=== PATIENT | female | born 1930 | race Caucasian/White ===

== ENCOUNTER 2016-08-01 17:26 | Emergency (ER) | payer OTHER ==
[~2016-08-01 17:26] MED LIST: AMLODIPINE BESYL5 MG PO; ATENOLOL50 MG PO; ATORVASTATIN CA40 MG PO; SYNTHROID75 MCG PO
--- NOTE | 2016-08-01 18:27 | ED CLINICAL REPORT ---
Clinical Report - Physicians/Mid Levels [facility] [address] [place] [address] 08/01/2016 17:28 Patient: OPAL LAI Time Seen: 17:55. Arrived- By private vehicle. Historian- patient. History limited by vague historian. Physical Exam limited by poor cooperation. HISTORY OF PRESENT ILLNESS Chief Complaint: ABNORMAL LAB. This started today and is still present. (the patient apparently went to her primary care physician's office today. She was seen there for routine physical and apparently lab work was obtained. She and her were contacted by the office and instructed present to the emergency room because apparently her potassium is high and apparently she is anemic. She is also reportedly "dehydrated."). REVIEW OF SYSTEMS No chills, fever, sweats, calf pain or chest pain. No cough, difficulty breathing, pedal edema, palpitations or abdominal pain. No diarrhea, nausea, vomiting or urinary problems. All systems otherwise negative, except as recorded above. PAST HISTORY Problems: Bowel Obstruction. Pneumonia. Hyperlipidemia. Abdominal Pain. Hypertension. Additional Surgeries: Appendectomy. Hysterectomy. Ruptured bowel. Tonsillectomy & Adenoidectomy. Medications: AmLODIPine Besylate Oral (Tablet 5 mg) 1 tablet, daily. Levothyroxine Sodium Oral (Tablet 75 mcg) 1 tablet, daily. Atorvastatin Calcium Oral (Tablet 40 mg) 1 tablet, daily. Allergies: No Known Drug Allergy. SOCIAL HISTORY Never smoker. Occasional alcohol use. No drug use. She lives with spouse. FAMILY HISTORY Denies family medical history. ADDITIONAL NOTES The nursing notes have been reviewed. PHYSICAL EXAM Vital Signs: 08/01/2016 17:35 BP: 133/58. HR: 71. RR: 20. O2 saturation: 100%. Temp: 96.3 F. Pain level now: 0/10. Appearance: Alert. Eyes: Pupils equal, round and reactive to light. ENT: Dry mucous membranes present. No pharyngeal erythema. Neck: Normal inspection. Neck supple. No JVD. CVS: Normal heart rate and rhythm. Heart sounds normal. Respiratory: No respiratory distress. Decreased air movement. Abdomen: No visible injury. Soft and nontender. Bowel sounds normal. No organomegaly. No mass. Back: Normal inspection. No CVA tenderness. Rectal: Strongly heme-positive stool. (POC test reference range: negative). Skin: Skin warm and dry. Pallor. Extremities: No calf tenderness. No lower extremity edema. LABS, X-RAYS, AND EKG EKG: Rate: 68. Decreased QRS voltage. Prior EKG unavailable. Chest X-ray: (IMPRESSION: 1. Negative chest.). The X-rays were interpreted by the radiologist and contemporaneously by me. Abdominal CT: IMPRESSION: 1. Hysterectomy and partial sigmoidectomy 2. Rizvi catheter in place 3. L2 lytic lesion suggestive of metastasis. The study was interpreted by the radiologist and contemporaneously by me. Laboratory Tests: CBC w Diff: (VITOR: 08/01/2016 17:38) ( MsgRcvd 08/01/2016 19:19) Final results Test Result Flag Units (Reference) WHITE BLOOD COUNT 14.7 H K/uL (4.5-11.5) RED BLOOD COUNT 2.02 L M/uL (4.00-5.20) HEMOGLOBIN 6.9 L gm/dL (12.0-16.0) CRITICAL RESULTS CALLEDCalled to [place] 08/01/16 1800Were 2 patient identifiers used? YWas the result read back? Y HEMATOCRIT 20.4 *L % (36.0-46.0) CRITICAL RESULTS CALLEDCalled to [place] K[place] 08/01/16 1800Were 2 patient identifiers used? YWas the result read back? Y MEAN CELL VOLUME 102 H fL (80-100) MEAN CORPUSCULAR HGB 34 pg (26-34) MEAN CORPUSCULAR HGB CONC 34 g/dL (31-37) RED CELL DISTRIBUTION WIDTH 18.4 H % (11.6-14.8) PLATELET COUNT 51 L K/uL (150-400) NEUTROPHIL % 27.5 L % (50-75) LYMPH % 23.6 L % (25-40) MONO % 8.7 % (3-14) EOSINOPHIL % 0.3 % (0-4) BASOPHIL % 39.9 H % (0-2) POLY % 40 L % (50-75) BAND % 1 % (0-8) LYMPH 44 H % (25-40) MONO 13 % (3-14) EOSINOPHIL % 1 % (0-4) BASOPHIL % 1 % (0-2) METAMYELOCYTE % 0 % (0-1) MYELOCYTE 0 % (0-1) OTHER CELL TYPE 0 HYPOCHROMIA 2+ ANISOCYTOSIS 2+ OVALOCYTES 1+ PT with INR: (VITOR: 08/01/2016 17:38) ( [facility] 08/01/2016 18:02) Final results Test Result Flag Units (Reference) INR 1.2 (0.8-1.2) Low Intensity Therapy: INR 1.5-2.0 PT range 18.5-23.1Mod.Intensity Therapy: INR 2.0-3.0 PT range 23.1-31.5High Intensity Therapy: INR 2.5-3.5 PT range 27.4-35.5High Intensity Therapy 2: INR 3.0-4.0 PT range 31.5-39.3 APTT 30 SECONDS (24-34) Lactate, Serum: (VITOR: 08/01/2016 18:55) ( [facility] 08/01/2016 19:49) Final results Test Result Flag Units (Reference) LACTIC ACID 1.2 mmol/L (0.4-2.0) Lipase: (VITOR: 08/01/2016 18:00) ( [facility] 08/01/2016 18:18) Final results Test Result Flag Units (Reference) LIPASE 1241 H U/L (73-393) AMYLASE 96 U/L (25-115) CMP: (VITOR: 08/01/2016 17:38) ( [facility] 08/01/2016 18:19) Final results Test Result Flag Units (Reference) GLUCOSE 125 H mg/dL (70-110) BUN 191 *H mg/dL (7-18) CRITICAL RESULTS CALLEDCalled to Allyn NOEL 08/01/16 4210Were 2 patient identifiers used? Y'Was the result read back? Y CREATININE 19.7 *H mg/dL (0.6-1.3) CRITICAL RESULTS CALLEDCalled to Allyn NOEL 08/01/163Were 2 patient identifiers used? YWas the result read back? Y Estimated GFR 1.80 mL/min Estimated GFR- 2.18 mL/min Note: Persistent reduction over 3 months in eGFR<60 mL/min/1.73 m2 defines CKD. Patients with eGFR values>=60 mL/min/1.73 m2 may also have CKD if evidence ofpersistent proteinuria. Additional information may be foundat www.kidney.org. SODIUM 129 L mmol/L (136-145) POTASSIUM 5.6 H mmol/L (3.5-5.1) CHLORIDE 92 L mmol/L (98-107) CARBON DIOXIDE 9 *L mmol/L (21-32) CRITICAL RESULTS CALLEDCalled to Allyn NOEL 08/01/164Were 2 patient identifiers used? YWas the result read back? Y CALCIUM 8.7 mg/dL (8.5-10.1) TOTAL PROTEIN 9.0 H g/dL (6.4-8.2) ALBUMIN 2.9 L g/dL (3.3-5.0) BILIRUBIN, TOTAL 0.5 mg/dL (0.0-1.0) ALKALINE PHOSPHATASE 124 H U/L (46-116) AST (SGOT) 46 H U/L (15-37) ALT (SGPT) 50 U/L (12-78) Type & Screen: (VITOR: 08/01/2016 17:51) ( MsgRcvd 08/01/2016 19:10) Final results Test Result Flag Units (Reference) PATIENT BLOOD TYPE O Negative ANTIBODY SCREEN NEGATIVE . PROGRESS AND PROCEDURES Course of Care: Patient is stable. Consult obtained from internal medicine. Dr. Lind at [facility]. Case discussed. Phone consult only. Will see patient in the hospital. Patient/family counseled. Old medical records reviewed. Disposition: Transferred to [facility]. CLINICAL IMPRESSION GI bleed. Pancreatitis. Anemia. Leukocytosis. Anemia. Hyperkalemia. Hyponatremia. L 2 lytic lesion. (Electronically signed by Brock Gtz MD 08/04/2016 9:05)
--- NOTE | 2016-08-01 18:27 | ED NURSING NOTES ---
Clinical Report - Nurses [facility] [address] [place] [address] 08/01/2016 17:28 Patient: OPAL LAI TRIAGE Triage time 17:35 Aug 01 2016. Acuity: LEVEL 2. Chief Complaint: (weak and shaking, nosebleeds). 17:42 08/01/16. --17:42 Elaine Bella R.N. 17:35 08/01/16. BP: 133/58. HR: 71. RR: 20. O2 saturation: 100%. Temp: 96.3 F (temporal). Pain level now: 0/10. --17:42 Elaine Bella R.N. Weight: 64.3 kg measured. Height/Length: 64 inches Per Patient. BMI: 24.4. --17:35 Elaine Bella R.N. Medications Atorvastatin Calcium Oral (Tablet 40 mg) 1 tablet, daily. --17:39 Elaine Bella R.N. Levothyroxine Sodium Oral (Tablet 75 mcg) 1 tablet, daily. --17:39 Elaine Bella R.N. AmLODIPine Besylate Oral (Tablet 5 mg) 1 tablet, daily. --17:39 Elaine Bella R.N. Medication/allergy information source: the patient's spouse. --17:42 Elaine Bella R.N. Allergies No Known Drug Allergy. --17:39 Elaine Bella R.N. History Arrived by private vehicle. Historian: patient. Accompanied by family. ( sent by [facility], was at routine eval today and found to have Hgb 6.7, hct 19.6, creat 18, Co2 8). Onset. (1 weeks). She has had weakness and difficulty breathing. No fever, cough or skin rash. Denies muscle aches. Treatment CAFE WORKER: None. PAST MEDICAL HX: Immunizations: has received tetanus within 5 years; seasonal influenza. SOCIAL HX: Never smoker. Occasional alcohol use. No drug use. No infectious disease exposure. ABUSE ASSESSMENT: No report of abuse. SELF HARM ASSESSMENT: A self harm assessment was performed. The patient answered "no" to the question "Have you recently felt down, depressed, or hopeless?", "Have you noticed less interest or pleasure in doing things?", "Do you have thoughts of harming or killing yourself?", "Are you here because you tried to hurt yourself?", "Have you ever tried to hurt yourself before today?", "Have you recently had thoughts about harming or killing others?" and "Do you have any dangerous items in your possession?". LEARNING NEEDS ASSESSMENT: The learning needs assessment revealed no barriers. NUTRITIONAL RISK ASSESSMENT: Deficiencies were identified during the nutritional risk assessment. The patient has experienced recent unexpected weight loss- less than 10 pounds in 30 days. The patient has recently had a 75 percent decrease in intake and decreased appetite, loss of taste and anorexia. 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 SKIN INTEGRITY ASSESSMENT: Skin integrity risk assessment completed. No skin integrity risk identified. --17:42 Elaine Bella R.N. PROBLEMS: Bowel Obstruction. Hyperlipidemia. Hypertension. --17:40 Elaine Bella R.N. ADDITIONAL SURGERIES: Appendectomy. Hysterectomy. Ruptured bowel. Tonsillectomy & Adenoidectomy. --17:40 Elaine Bella R.N. Interventions ID band on patient. --17:42 Elaine Bella R.N. PHYSICAL ASSESSMENT 17:43 08/01/16. To room via wheelchair. GENERAL / NEURO / PSYCH: Alert. Oriented X 4. HEENT: Pupils equal, round and reactive to light. No facial asymmetry noted. Active nose bleed present (recent nose bleeds). No facial weakness. Runny nose. No sinus tenderness present. ( oral membranes dry). Mucous membranes are not pink. RESPIRATORY: Respirations not labored. No chest wall tenderness. Breath sounds within normal limits. No decreased breath sounds, crackles, wheezes, rhonchi or cough. CVS: Normal sinus rhythm noted. Cardiac rhythm: normal sinus rhythm. Capillary refill less than 2 seconds. Pulses within normal limits. GI / : Abdomen soft. SKIN: Skin intact. Skin is warm and dry. Normal skin turgor. --17:43 Elaine Bella R.N. NURSING PROGRESS NOTES 17:38 08/01/2016 Site #1 started via IV in the left antecubital space with an 20g angiocath, with aseptic technique and good blood return; one attempt. Blood drawn: rainbow set. Labeled in the presence of the patient and sent to the lab. Saline lock flushed with 10 mL saline. --17:48 Tracy Winter R.N. 17:45 08/01/16. The initial plan of care for this patient includes an assessment with efforts to address impairment of the cardiovascular, respiratory and genitourinary system. This plan of care was discussed with the patient. bus monitor, pulse oximeter and NIBP monitor placed on patient; nurse monitoring- Lead II; monitor alarms on. Patient gowned. Reassurance given. Patient identifiers checked. Call light placed in reach. Side rails up x 2. Bed placed in lowest position. Brakes of bed on. Patient ready for evaluation. --17:45 Elaine Bella R.N. 18:00 08/01/16. Critical value relayed to ED by Noreen. Critical value received by Alieen. Hgb: 6.9. Hct: 20.4. Platelets: 51. ED physician notifed of critical value. Orders were received. --18:00 Elaine Bella R.N. EKG time: (1800). EKG was ordered, performed by a tech and shown to the ED physician. --18:01 Ayana Ventura ER Tech1 18:15 08/01/16. BP: 115/68. HR: 69. RR: 16. O2 saturation: 100%. Pain level now 0/10. --18:16 Elaine Bella R.N. 18:15 08/01/16. Cardiac rhythm: normal sinus rhythm. --18:16 Elaine Bella R.N. 18:17 08/01/16. Critical value relayed to ED by Damian. Critical value received by Chelsey. CO2 9.2. BUN: 191. Creatinine: 19.6. Critical value read back. Verified lab result and patient ID. --18:17 Elaine Bella R.N. 18:27 08/01/16. Hemoccult test. rodent control worker check passed. completed by dr Gtz (POC test reference range: negative). --18:27 Elaine Bella R.N. <<STRICKEN ENTRY-- 18:30 08/01/2016 Started bag #1 5000 mL IV Fluids IV NS (Saline); bolus of 500 mL over 1 hour(s) then at 100 mL/hr over 5 hour(s) via site #1 via IV pump. Allergies verified and confirmed 5 rights. IV patency established. IV site checked: no pain, redness, or swelling. IV flushed thoroughly pre- and post-medication administration. --18:42 Elaine Bella R.N. --END STRIKE>> Correction. --19:36 Elaine Bella R.N. 18:30 08/01/2016 Started bag #1 1000 mL IV Fluids IV NS (Saline); bolus of 500 mL over 1 hour(s) then at 100 mL/hr over 5 hour(s) via site #1 via IV pump. Allergies verified and confirmed 5 rights. IV patency established. IV site checked: no pain, redness, or swelling. IV flushed thoroughly pre- and post-medication administration. --19:36 Elaine Bella R.N. 18:35 08/01/16. 14 fr temperature sensing friedman catheter for close monitoring of sepsis. Reason for indwelling catheter: critical need to monitor intake and output. During procedure hand hygiene observed and sterile equipment and aseptic technique used. Return of less than 50 mL yellow-colored cloudy urine; attached to bedside drainage bag positioned below the bladder and secured with stabilization device. She tolerated procedure well. Patient ID band checked for patient name and birthdate: patient confirmed. Catheterized urine collected with return of yellow-colored cloudy urine; sample sent to lab for urinalysis and culture. Specimen labeled in the presence of the patient. Patient transported to [place] by stretcher with tech. --18:35 Elaine Bella R.N. 18:50 08/01/2016 Site #2 started via IV in the right antecubital space with an 20g angiocath, with aseptic technique and good blood return; one attempt. Blood drawn: cultures x1. Saline lock flushed with 5 mL saline (Lactic acid). --19:00 Elaine Bella R.N. 19:30 08/01/2016 Started 1 gm of Calcium Gluconate IVPB in bag #1 100 mL; at 200 mL/hr over 30 minute(s) via site #2 via IV pump. Allergies verified and confirmed 5 rights. IV patency established. IV site checked: no pain, redness, or swelling. IV flushed thoroughly pre- and post-medication administration. --19:36 Elaine Bella R.N. late entry - 19:30 08/01/16. Cardiac rhythm: normal sinus rhythm. --19:39 Elaine Bella R.N. 19:30 08/01/16. BP: 105/71. HR: 70. RR: 22. O2 saturation: 97%. Pain level now 0/10. --19:39 Elaine Bella R.N. 20:10 08/01/16. BP: 121/59. HR: 72. RR: 24. O2 saturation: 98%. Pain level now 0/10. --20:10 Elaine Bella R.N. 20:10 08/01/16. Cardiac rhythm: normal sinus rhythm. Reassessment after fluids administered. She is calm and resting quietly. Overall patient status is the same- she states feels the same. ( Trying to find bed at [facility] or [facility] for transfer). --20:10 Elaine Bella R.N. 20:52 08/01/16. BP: 135/69. HR: 74. RR: 22. O2 saturation: 98%. Pain level now 0/10. --20:52 Elaine Bella R.N. 20:52 08/01/16. Cardiac rhythm: normal sinus rhythm. Reassessment after fluids administered and medication administered. She is calm and resting quietly. ( Oral membranes still very dry.). RESPIRATORY: Respiratory distress present. Breath sounds normal. SKIN: Skin is warm and dry. --20:52 Elaine Bella R.N. 21:35 08/01/2016 Site #[address] upon transfer; patent. --21:58 Elaine Bella R.NHipolito 21:35 08/01/2016 Site #[address] upon transfer; flushes easily. --21:58 Elaine Bella R.N. Intake & Output 18:35 08/01/16. Urine: 9 mL. --18:35 Elaine Bella R.N. DISPOSITION / DISCHARGE 20:00 08/01/2016 Calcium Gluconate IVPB Discontinued: bag #1 completed. Total amount infused: 50 mL. IV patency established. IV site checked: no pain, redness, or swelling. IV flushed thoroughly. --21:57 Elaine Bella R.N. 21:35 08/01/16. BP: 121/64. HR: 80. RR: 23. O2 saturation: 98%. Temp: 97.0 F. Pain level now 0/10. --21:58 Elaine Bella R.N. 21:35 08/01/16. Departure time: :Aug 01 2016. Cardiac rhythm: normal sinus rhythm. Condition at departure: unchanged and critical. The goals identified in the patient's plan of care were met. Transferred to [facility]. Summary of care provided to transfer facility via paper and fax (ER). Transported via ambulance by EMS with monitor and IV. ( Report faxed to [facility] per protocol). --21:58 Elaine Bella R.N. 21:35 08/01/2016 IV Fluids IV NS Continued: at the rate of 100 mL/hr. 100 mL remaining bag #1. IV patency established. IV site checked: no pain, redness, or swelling. IV flushed thoroughly. --21:57 Elaine Bella R.N. Locked/Released at 08/01/2016 21:59 by Elaine Bella R.N.
--- NOTE | 2016-08-01 18:27 | ED ORDER SUMMARY ---
..... Patient: OPAL LAI [facility] VisitID: [id number] [address] [place] [address] 86y, F Registration Date/Time: 08/01/2016 ORDER SHEET Weight: 64.3 kg (measured) Allergies: No Known Drug Allergy GENERAL ORDERS: Laundry Manager (Continuous) (17:46 08/01/2016 EInderbitzen R.N. verbal order read back to Beverly WEATHERS) (17:52 LNations ER Tech1) CBC w Diff Urgent (17:46 08/01/2016 EInderbitzen R.N. verbal order read back to Beverly WEATHERS) (17:48 KWilliams R.N.) CMP Urgent (17:46 08/01/2016 EInderbitzen R.N. verbal order read back to Beverly WEATHERS) (17:48 KWilliams R.N.) Pulse oximeter (17:46 08/01/2016 EInderbitzen R.N. verbal order read back to Beverly WEATHERS) (17:52 LNations ER Tech1) EKG - ER Stat (17:46 08/01/2016 EInderbitzen R.N. verbal order read back to Beverly WEATHERS) (17:52 LNations ER Tech1) NPO (17:46 08/01/2016 EInderbitzen R.N. verbal order read back to Beverly WEATHERS) (17:54 PRouse ER Tech1) Amylase Urgent (17:51 08/01/2016 Beverly WEATHERS) (17:54 KWilliams R.N.) (17:54 PRouse ER Tech1) Lipase Urgent (17:51 08/01/2016 Beverly WEATHERS) (17:54 KWilliams R.N.) (17:54 PRouse ER Tech1) PTT Urgent (17:51 08/01/2016 Beverly WEATHERS) (17:54 KWilliams R.N.) (17:54 PRouse ER Tech1) PT with INR Urgent (17:51 08/01/2016 Beverly WEATHERS) (17:54 KWilliams R.N.) (17:54 PRouse ER Tech1) Type & Screen Urgent (17:51 08/01/2016 Beverly WEATHERS) (17:54 PRouse ER Tech1) Blood Culture (No) (N/A) Urgent (18:26 08/01/2016 Beverly WEATHERS) (Ack 18:30 Omega) (19:26 PRouse ER Tech1) Lactate, Serum Urgent (18:26 08/01/2016 Beverly WEATHERS) (Ack 18:31 Omega) (19:22 EInderbitzen R.N.) CT Abd/Pel wo Cont Urgent (18:26 08/01/2016 Beverly WEATHERS) (18:39 PRouse ER Tech1) Chest 1V Urgent (18:57 08/01/2016 Beverly WEATHERS) (Ack 19:07 Omega) (19:38 MCampbell) MEDICATION ORDERS: IV FLUIDS: IV Saline Lock (17:46 08/01/2016 EIdominick R.N. verbal order read back to Beverly WEATHERS) (17:48 KWilliams R.N.) IV Saline Lock (2 large bore IV sites) (17:51 08/01/2016 Beverly WEATHERS) (19:22 EInderbitzen R.N.) IV NS with Normal Saline 1 Liter: initial bolus 500 mL (1000 mL/hr), then 100 mL/hr for X5 (NOW) (18:40 08/01/2016 EInderbitzen R.N. verbal order read back to Beverly WEATHERS) (18:42 EInderbitzen R.N.) Calcium Gluconate IV 1 gm/100mL (HIGH ALERT MEDICATION, NOW) (18:53 08/01/2016 Beverly WEATHERS) (19:36 EInderbitzen R.N.) ORDER SHEET NOTES: [Electronically signed by Elaine Bella R.N. (21:59 08/01/2016)] [Electronically signed by Brock Gtz MD (09:05 08/04/2016)] [Electronically locked/signed by Elaine Bella R.N. (21:59 08/01/2016)]
--- NOTE | 2016-08-01 18:27 | ED NURSING NOTES ---
Clinical Report - Nurses [facility] [address] [place] [address] 08/01/2016 17:28 Patient: OPAL LAI TRIAGE Triage time 17:35 Aug 01 2016. Acuity: LEVEL 2. Chief Complaint: (weak and shaking, nosebleeds). 17:42 08/01/16. --17:42 Elaine Bella R.N. 17:35 08/01/16. BP: 133/58. HR: 71. RR: 20. O2 saturation: 100%. Temp: 96.3 F (temporal). Pain level now: 0/10. --17:42 Elaine Bella R.N. Weight: 64.3 kg measured. Height/Length: 64 inches Per Patient. BMI: 24.4. --17:35 Elaine Bella R.N. Medications Atorvastatin Calcium Oral (Tablet 40 mg) 1 tablet, daily. --17:39 Elaine Bella R.N. Levothyroxine Sodium Oral (Tablet 75 mcg) 1 tablet, daily. --17:39 Elaine Bella R.N. AmLODIPine Besylate Oral (Tablet 5 mg) 1 tablet, daily. --17:39 Elaine Belal R.N. Medication/allergy information source: the patient's spouse. --17:42 Elaine Bella R.N. Allergies No Known Drug Allergy. --17:39 Elaine Bella R.N. History Arrived by private vehicle. Historian: patient. Accompanied by family. ( sent by [facility], was at routine eval today and found to have Hgb 6.7, hct 19.6, creat 18, Co2 8). Onset. (1 weeks). She has had weakness and difficulty breathing. No fever, cough or skin rash. Denies muscle aches. Treatment FORMING PRESS OPERATOR: None. PAST MEDICAL HX: Immunizations: has received tetanus within 5 years; seasonal influenza. SOCIAL HX: Never smoker. Occasional alcohol use. No drug use. No infectious disease exposure. ABUSE ASSESSMENT: No report of abuse. SELF HARM ASSESSMENT: A self harm assessment was performed. The patient answered "no" to the question "Have you recently felt down, depressed, or hopeless?", "Have you noticed less interest or pleasure in doing things?", "Do you have thoughts of harming or killing yourself?", "Are you here because you tried to hurt yourself?", "Have you ever tried to hurt yourself before today?", "Have you recently had thoughts about harming or killing others?" and "Do you have any dangerous items in your possession?". LEARNING NEEDS ASSESSMENT: The learning needs assessment revealed no barriers. NUTRITIONAL RISK ASSESSMENT: Deficiencies were identified during the nutritional risk assessment. The patient has experienced recent unexpected weight loss- less than 10 pounds in 30 days. The patient has recently had a 75 percent decrease in intake and decreased appetite, loss of taste and anorexia. 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 SKIN INTEGRITY ASSESSMENT: Skin integrity risk assessment completed. No skin integrity risk identified. --17:42 Elaine Bella R.N. PROBLEMS: Bowel Obstruction. Hyperlipidemia. Hypertension. --17:40 Elaine Bella R.N. ADDITIONAL SURGERIES: Appendectomy. Hysterectomy. Ruptured bowel. Tonsillectomy & Adenoidectomy. --17:40 Elaine Bella R.N. Interventions ID band on patient. --17:42 Elaine Bella R.N. PHYSICAL ASSESSMENT 17:43 08/01/16. To room via wheelchair. GENERAL / NEURO / PSYCH: Alert. Oriented X 4. HEENT: Pupils equal, round and reactive to light. No facial asymmetry noted. Active nose bleed present (recent nose bleeds). No facial weakness. Runny nose. No sinus tenderness present. ( oral membranes dry). Mucous membranes are not pink. RESPIRATORY: Respirations not labored. No chest wall tenderness. Breath sounds within normal limits. No decreased breath sounds, crackles, wheezes, rhonchi or cough. CVS: Normal sinus rhythm noted. Cardiac rhythm: normal sinus rhythm. Capillary refill less than 2 seconds. Pulses within normal limits. GI / : Abdomen soft. SKIN: Skin intact. Skin is warm and dry. Normal skin turgor. --17:43 Elaine Bella R.N. NURSING PROGRESS NOTES 17:38 08/01/2016 Site #1 started via IV in the left antecubital space with an 20g angiocath, with aseptic technique and good blood return; one attempt. Blood drawn: rainbow set. Labeled in the presence of the patient and sent to the lab. Saline lock flushed with 10 mL saline. --17:48 Tracy Winter R.N. 17:45 08/01/16. The initial plan of care for this patient includes an assessment with efforts to address impairment of the cardiovascular, respiratory and genitourinary system. This plan of care was discussed with the patient. equipment monitor phototypesetting, pulse oximeter and NIBP monitor placed on patient; monitoring and evaluation advisor- Lead II; monitor alarms on. Patient gowned. Reassurance given. Patient identifiers checked. Call light placed in reach. Side rails up x 2. Bed placed in lowest position. Brakes of bed on. Patient ready for evaluation. --17:45 Elaine Bella R.N. 18:00 08/01/16. Critical value relayed to ED by Noreen. Critical value received by Aileen. Hgb: 6.9. Hct: 20.4. Platelets: 51. ED physician notifed of critical value. Orders were received. --18:00 Elaine Bella R.N. EKG time: (1800). EKG was ordered, performed by a tech and shown to the ED physician. --18:01 Ayana Ventura ER Tech1 18:15 08/01/16. BP: 115/68. HR: 69. RR: 16. O2 saturation: 100%. Pain level now 0/10. --18:16 Elaine Bella R.N. 18:15 08/01/16. Cardiac rhythm: normal sinus rhythm. --18:16 Elaine Bella R.N. 18:17 08/01/16. Critical value relayed to ED by Damian. Critical value received by Chelsey. CO2 9.2. BUN: 191. Creatinine: 19.6. Critical value read back. Verified lab result and patient ID. --18:17 Elaine Bella R.N. 18:27 08/01/16. Hemoccult test. tape control skin or spar mill operator check passed. completed by dr Gtz (POC test reference range: negative). --18:27 Elaine Bella R.N. <<STRICKEN ENTRY-- 18:30 08/01/2016 Started bag #1 5000 mL IV Fluids IV NS (Saline); bolus of 500 mL over 1 hour(s) then at 100 mL/hr over 5 hour(s) via site #1 via IV pump. Allergies verified and confirmed 5 rights. IV patency established. IV site checked: no pain, redness, or swelling. IV flushed thoroughly pre- and post-medication administration. --18:42 Elaine Bella R.N. --END STRIKE>> Correction. --19:36 Elaine Bella R.N. 18:30 08/01/2016 Started bag #1 1000 mL IV Fluids IV NS (Saline); bolus of 500 mL over 1 hour(s) then at 100 mL/hr over 5 hour(s) via site #1 via IV pump. Allergies verified and confirmed 5 rights. IV patency established. IV site checked: no pain, redness, or swelling. IV flushed thoroughly pre- and post-medication administration. --19:36 Elaine Bella R.N. 18:35 08/01/16. 14 fr temperature sensing friedman catheter for close monitoring of sepsis. Reason for indwelling catheter: critical need to monitor intake and output. During procedure hand hygiene observed and sterile equipment and aseptic technique used. Return of less than 50 mL yellow-colored cloudy urine; attached to bedside drainage bag positioned below the bladder and secured with stabilization device. She tolerated procedure well. Patient ID band checked for patient name and birthdate: patient confirmed. Catheterized urine collected with return of yellow-colored cloudy urine; sample sent to lab for urinalysis and culture. Specimen labeled in the presence of the patient. Patient transported to [place] by stretcher with tech. --18:35 Elaine Bella R.N. 18:50 08/01/2016 Site #2 started via IV in the right antecubital space with an 20g angiocath, with aseptic technique and good blood return; one attempt. Blood drawn: cultures x1. Saline lock flushed with 5 mL saline (Lactic acid). --19:00 Elaine Bella R.N. 19:30 08/01/2016 Started 1 gm of Calcium Gluconate IVPB in bag #1 100 mL; at 200 mL/hr over 30 minute(s) via site #2 via IV pump. Allergies verified and confirmed 5 rights. IV patency established. IV site checked: no pain, redness, or swelling. IV flushed thoroughly pre- and post-medication administration. --19:36 Elaine Bella R.N. late entry - 19:30 08/01/16. Cardiac rhythm: normal sinus rhythm. --19:39 Elaine Bella R.N. 19:30 08/01/16. BP: 105/71. HR: 70. RR: 22. O2 saturation: 97%. Pain level now 0/10. --19:39 Elaine Bella R.N. 20:10 08/01/16. BP: 121/59. HR: 72. RR: 24. O2 saturation: 98%. Pain level now 0/10. --20:10 Elaine Bella R.N. 20:10 08/01/16. Cardiac rhythm: normal sinus rhythm. Reassessment after fluids administered. She is calm and resting quietly. Overall patient status is the same- she states feels the same. ( Trying to find bed at [facility] or [place] [facility] for transfer). --20:10 Elaine Bella R.N. 20:52 08/01/16. BP: 135/69. HR: 74. RR: 22. O2 saturation: 98%. Pain level now 0/10. --20:52 Elaine Bella R.N. 20:52 08/01/16. Cardiac rhythm: normal sinus rhythm. Reassessment after fluids administered and medication administered. She is calm and resting quietly. ( Oral membranes still very dry.). RESPIRATORY: Respiratory distress present. Breath sounds normal. SKIN: Skin is warm and dry. --20:52 Elaine Bella R.N. 21:35 08/01/2016 Site #[address] upon transfer; patent. --21:58 Elaine Bella R.NHipolito 21:35 08/01/2016 Site #[address] upon transfer; flushes easily. --21:58 Elaine Bella R.N. Intake & Output 18:35 08/01/16. Urine: 9 mL. --18:35 Elaine Bella R.N. DISPOSITION / DISCHARGE 20:00 08/01/2016 Calcium Gluconate IVPB Discontinued: bag #1 completed. Total amount infused: 50 mL. IV patency established. IV site checked: no pain, redness, or swelling. IV flushed thoroughly. --21:57 Elaine Bella R.N. 21:35 08/01/16. BP: 121/64. HR: 80. RR: 23. O2 saturation: 98%. Temp: 97.0 F. Pain level now 0/10. --21:58 Elaine Bella R.N. 21:35 08/01/16. Departure time: :Aug 01 2016. Cardiac rhythm: normal sinus rhythm. Condition at departure: unchanged and critical. The goals identified in the patient's plan of care were met. Transferred to [facility]. Summary of care provided to transfer facility via paper and fax (ER). Transported via ambulance by EMS with monitor and IV. ( Report faxed to [facility] per protocol). --21:58 Elaine Bella R.N. 21:35 08/01/2016 IV Fluids IV NS Continued: at the rate of 100 mL/hr. 100 mL remaining bag #1. IV patency established. IV site checked: no pain, redness, or swelling. IV flushed thoroughly. --21:57 Elaine Bella R.N. Locked/Released at 08/01/2016 21:59 by Elaine Bella R.N.
--- NOTE | 2016-08-01 18:27 | ED CLINICAL REPORT ---
Clinical Report - Physicians/Mid Levels [facility] [address] [place] [address] 08/01/2016 17:28 Patient: OPAL LAI Time Seen: 17:55. Arrived- By private vehicle. Historian- patient. History limited by vague historian. Physical Exam limited by poor cooperation. HISTORY OF PRESENT ILLNESS Chief Complaint: ABNORMAL LAB. This started today and is still present. (the patient apparently went to her primary care physician's office today. She was seen there for routine physical and apparently lab work was obtained. She and her were contacted by the office and instructed present to the emergency room because apparently her potassium is high and apparently she is anemic. She is also reportedly "dehydrated."). REVIEW OF SYSTEMS No chills, fever, sweats, calf pain or chest pain. No cough, difficulty breathing, pedal edema, palpitations or abdominal pain. No diarrhea, nausea, vomiting or urinary problems. All systems otherwise negative, except as recorded above. PAST HISTORY Problems: Bowel Obstruction. Pneumonia. Hyperlipidemia. Abdominal Pain. Hypertension. Additional Surgeries: Appendectomy. Hysterectomy. Ruptured bowel. Tonsillectomy & Adenoidectomy. Medications: AmLODIPine Besylate Oral (Tablet 5 mg) 1 tablet, daily. Levothyroxine Sodium Oral (Tablet 75 mcg) 1 tablet, daily. Atorvastatin Calcium Oral (Tablet 40 mg) 1 tablet, daily. Allergies: No Known Drug Allergy. SOCIAL HISTORY Never smoker. Occasional alcohol use. No drug use. She lives with spouse. FAMILY HISTORY Denies family medical history. ADDITIONAL NOTES The nursing notes have been reviewed. PHYSICAL EXAM Vital Signs: 08/01/2016 17:35 BP: 133/58. HR: 71. RR: 20. O2 saturation: 100%. Temp: 96.3 F. Pain level now: 0/10. Appearance: Alert. Eyes: Pupils equal, round and reactive to light. ENT: Dry mucous membranes present. No pharyngeal erythema. Neck: Normal inspection. Neck supple. No JVD. CVS: Normal heart rate and rhythm. Heart sounds normal. Respiratory: No respiratory distress. Decreased air movement. Abdomen: No visible injury. Soft and nontender. Bowel sounds normal. No organomegaly. No mass. Back: Normal inspection. No CVA tenderness. Rectal: Strongly heme-positive stool. (POC test reference range: negative). Skin: Skin warm and dry. Pallor. Extremities: No calf tenderness. No lower extremity edema. LABS, X-RAYS, AND EKG EKG: Rate: 68. Decreased QRS voltage. Prior EKG unavailable. Chest X-ray: (IMPRESSION: 1. Negative chest.). The X-rays were interpreted by the radiologist and contemporaneously by me. Abdominal CT: IMPRESSION: 1. Hysterectomy and partial sigmoidectomy 2. Rizvi catheter in place 3. L2 lytic lesion suggestive of metastasis. The study was interpreted by the radiologist and contemporaneously by me. Laboratory Tests: CBC w Diff: (VITOR: 08/01/2016 17:38) ( MsgRcvd 08/01/2016 19:19) Final results Test Result Flag Units (Reference) WHITE BLOOD COUNT 14.7 H K/uL (4.5-11.5) RED BLOOD COUNT 2.02 L M/uL (4.00-5.20) HEMOGLOBIN 6.9 L gm/dL (12.0-16.0) CRITICAL RESULTS CALLEDCalled to HAMILTON 08/01/16 1800Were 2 patient identifiers used? YWas the result read back? Y HEMATOCRIT 20.4 *L % (36.0-46.0) CRITICAL RESULTS CALLEDCalled to HAMILTON 08/01/16 1800Were 2 patient identifiers used? YWas the result read back? Y MEAN CELL VOLUME 102 H fL (80-100) MEAN CORPUSCULAR HGB 34 pg (26-34) MEAN CORPUSCULAR HGB CONC 34 g/dL (31-37) RED CELL DISTRIBUTION WIDTH 18.4 H % (11.6-14.8) PLATELET COUNT 51 L K/uL (150-400) NEUTROPHIL % 27.5 L % (50-75) LYMPH % 23.6 L % (25-40) MONO % 8.7 % (3-14) EOSINOPHIL % 0.3 % (0-4) BASOPHIL % 39.9 H % (0-2) POLY % 40 L % (50-75) BAND % 1 % (0-8) LYMPH 44 H % (25-40) MONO 13 % (3-14) EOSINOPHIL % 1 % (0-4) BASOPHIL % 1 % (0-2) METAMYELOCYTE % 0 % (0-1) MYELOCYTE 0 % (0-1) OTHER CELL TYPE 0 HYPOCHROMIA 2+ ANISOCYTOSIS 2+ OVALOCYTES 1+ PT with INR: (VITOR: 08/01/2016 17:38) ( [facility] 08/01/2016 18:02) Final results Test Result Flag Units (Reference) INR 1.2 (0.8-1.2) Low Intensity Therapy: INR 1.5-2.0 PT range 18.5-23.1Mod.Intensity Therapy: INR 2.0-3.0 PT range 23.1-31.5High Intensity Therapy: INR 2.5-3.5 PT range 27.4-35.5High Intensity Therapy 2: INR 3.0-4.0 PT range 31.5-39.3 APTT 30 SECONDS (24-34) Lactate, Serum: (VITOR: 08/01/2016 18:55) ( [facility] 08/01/2016 19:49) Final results Test Result Flag Units (Reference) LACTIC ACID 1.2 mmol/L (0.4-2.0) Lipase: (VITOR: 08/01/2016 18:00) ( [facility] 08/01/2016 18:18) Final results Test Result Flag Units (Reference) LIPASE 1241 H U/L (73-393) AMYLASE 96 U/L (25-115) CMP: (VITOR: 08/01/2016 17:38) ( [facility] 08/01/2016 18:19) Final results Test Result Flag Units (Reference) GLUCOSE 125 H mg/dL (70-110) BUN 191 *H mg/dL (7-18) CRITICAL RESULTS CALLEDCalled to Allyn NOEL 08/01/16 0810Were 2 patient identifiers used? Y'Was the result read back? Y CREATININE 19.7 *H mg/dL (0.6-1.3) CRITICAL RESULTS CALLEDCalled to Allyn NOEL 08/01/163Were 2 patient identifiers used? YWas the result read back? Y Estimated GFR 1.80 mL/min Estimated GFR- 2.18 mL/min Note: Persistent reduction over 3 months in eGFR<60 mL/min/1.73 m2 defines CKD. Patients with eGFR values>=60 mL/min/1.73 m2 may also have CKD if evidence ofpersistent proteinuria. Additional information may be foundat www.kidney.org. SODIUM 129 L mmol/L (136-145) POTASSIUM 5.6 H mmol/L (3.5-5.1) CHLORIDE 92 L mmol/L (98-107) CARBON DIOXIDE 9 *L mmol/L (21-32) CRITICAL RESULTS CALLEDCalled to Allyn NOEL 08/01/164Were 2 patient identifiers used? YWas the result read back? Y CALCIUM 8.7 mg/dL (8.5-10.1) TOTAL PROTEIN 9.0 H g/dL (6.4-8.2) ALBUMIN 2.9 L g/dL (3.3-5.0) BILIRUBIN, TOTAL 0.5 mg/dL (0.0-1.0) ALKALINE PHOSPHATASE 124 H U/L (46-116) AST (SGOT) 46 H U/L (15-37) ALT (SGPT) 50 U/L (12-78) Type & Screen: (VITOR: 08/01/2016 17:51) ( MsgRcvd 08/01/2016 19:10) Final results Test Result Flag Units (Reference) PATIENT BLOOD TYPE O Negative ANTIBODY SCREEN NEGATIVE . PROGRESS AND PROCEDURES Course of Care: Patient is stable. Consult obtained from internal medicine. Dr. Lind at [facility]. Case discussed. Phone consult only. Will see patient in the hospital. Patient/family counseled. Old medical records reviewed. Disposition: Transferred to [facility]. CLINICAL IMPRESSION GI bleed. Pancreatitis. Anemia. Leukocytosis. Anemia. Hyperkalemia. Hyponatremia. L 2 lytic lesion. (Electronically signed by Brock Gtz MD 08/04/2016 9:05)
--- NOTE | 2016-08-01 18:27 | ED ORDER SUMMARY ---
..... Patient: OPAL LAI OrderSheet [facility] VisitID: [id number] [address] [place] [address] 86y, F Registration Date/Time: 08/01/2016 ORDER SHEET Weight: 64.3 kg (measured) Allergies: No Known Drug Allergy GENERAL ORDERS: Residential Solar Consultant (Continuous) (17:46 08/01/2016 EInderbitzen R.N. verbal order read back to Beverly WEATHERS) (17:52 LNations ER Tech1) CBC w Diff Urgent (17:46 08/01/2016 EInderbitzen R.N. verbal order read back to Beverly WEATHERS) (17:48 KWilliams R.N.) CMP Urgent (17:46 08/01/2016 EInderbitzen R.N. verbal order read back to Beverly WEATHERS) (17:48 KWilliams R.N.) Pulse oximeter (17:46 08/01/2016 EInderbitzen R.N. verbal order read back to Beverly WEATHERS) (17:52 LNations ER Tech1) EKG - ER Stat (17:46 08/01/2016 EInderbitzen R.N. verbal order read back to Beverly WEATHERS) (17:52 LNations ER Tech1) NPO (17:46 08/01/2016 EInderbitzen R.N. verbal order read back to Beverly WEATHERS) (17:54 PAouse ER Tech1) Amylase Urgent (17:51 08/01/2016 Beverly WEATHERS) (17:54 KWilliams R.N.) (17:54 PAouse ER Tech1) Lipase Urgent (17:51 08/01/2016 Beverly WEATHERS) (17:54 KWilliams R.N.) (17:54 PAouse ER Tech1) PTT Urgent (17:51 08/01/2016 Beverly WEATHERS) (17:54 KWilliams R.N.) (17:54 PAouse ER Tech1) PT with INR Urgent (17:51 08/01/2016 Beverly WEATHERS) (17:54 KWilliams R.N.) (17:54 PAouse ER Tech1) Type & Screen Urgent (17:51 08/01/2016 Beverly WEATHERS) (17:54 PAouse ER Tech1) Blood Culture (No) (N/A) Urgent (18:26 08/01/2016 Beverly WEATHERS) (Ack 18:30 Omega) (19:26 PAouse ER Tech1) Lactate, Serum Urgent (18:26 08/01/2016 Beverly WEATHERS) (Ack 18:31 Omega) (19:22 EInderbitzen R.N.) CT Abd/Pel wo Cont Urgent (18:26 08/01/2016 Beverly WEATHERS) (18:39 PAouse ER Tech1) Chest 1V Urgent (18:57 08/01/2016 Beverly WEATHERS) (Ack 19:07 Omega) (19:38 MCampbell) MEDICATION ORDERS: IV FLUIDS: IV Saline Lock (17:46 08/01/2016 EIdominick R.N. verbal order read back to Beverly WEATHERS) (17:48 KWilliams R.N.) IV Saline Lock (2 large bore IV sites) (17:51 08/01/2016 Beverly WEATHERS) (19:22 EInderbitzen R.N.) IV NS with Normal Saline 1 Liter: initial bolus 500 mL (1000 mL/hr), then 100 mL/hr for X5 (NOW) (18:40 08/01/2016 EInderbitzen R.N. verbal order read back to Beverly WEATHERS) (18:42 EInderbitzen R.N.) Calcium Gluconate IV 1 gm/100mL (HIGH ALERT MEDICATION, NOW) (18:53 08/01/2016 Beverly WEATHERS) (19:36 EInderbitzen R.N.) ORDER SHEET NOTES: [Electronically signed by Elaine Bella R.N. (21:59 08/01/2016)] [Electronically signed by Brock Gtz MD (09:05 08/04/2016)] [Electronically locked/signed by Elaine Bella R.N. (21:59 08/01/2016)]
--- NOTE | 2016-08-01 19:07 | DIAGNOSTIC IMAGING REPORT ---
PROCEDURE: CT ABDOMEN/PELVIS W/O CONTRAST INDICATION: ELEVATED LIPASE TECHNIQUE: Noncontrast axial images were obtained of the entire abdomen and pelvis with sagittal and coronal reformations. COMPARISON: CT abdomen/pelvis 07/13/2015 FINDINGS: ABDOMEN: Mild bibasilar atelectasis. Heart size is normal. Liver, gallbladder, pancreas, spleen, adrenal glands and kidneys are unremarkable. There is no hydronephrosis. Moderate atherosclerosis of the aorta. There is no retroperitoneal adenopathy. Nonspecific bowel gas pattern. PELVIS: Rizvi catheter in place. Hysterectomy. Sigmoid resection with suture line. No evidence of bowel obstruction. Appendix not visualized. No pelvic mass , free fluid or inflammatory changes. There is a new 1 x 2 cm L2 of lytic lesion. Moderate degenerative changes of the spine. IMPRESSION: 1. Hysterectomy and partial sigmoidectomy 2. Rizvi catheter in place 3. L2 lytic lesion suggestive of metastasis 4. Results discussed with Dr. Gtz All CT scans at this facility use dose modulation, iterative reconstruction, and/or weight-based dosing when appropriate to reduce radiation dose to as low as reasonably achievable.
--- NOTE | 2016-08-01 20:21 | DIAGNOSTIC IMAGING REPORT ---
PROCEDURE: XR CHEST 1 VIEW INDICATION: HYPERKALEMIA, initial encounter TECHNIQUE: Portable AP view 07:01 p.m. COMPARISON: None. FINDINGS: Lungs are clear. Heart size, mediastinum and pulmonary vessels are normal. Tortuous aorta. Thorax is normal. IMPRESSION: 1. Negative chest.
--- NOTE | 2016-08-04 09:06 | ED MAR SUMMARY ---
..... Medication Administration Record [facility] [address] [place] [address] Patient: OPAL LAI Visit ID: [id number] 86y, F Weight: 64.3 kg Height/Length: 64 in BMI: 24.4 ALLERGIES: No Known Drug Allergy Start 18:30 08/01/2016 Elaine Bella R.N., Continued Upon Disposition 21:35 08/01/2016 Elaine Bella R.N. Medication Administered: IV NS (SALINE), Dose: IV Fluids over 5 hour(s), Rate: 100 mL/hr, Bolus: 500 mL over 1 hour(s), Dispensed: 1000 mL bag, Site: #1 left AC. Medication Ordered: IV NS with Normal Saline 1 Liter: initial bolus 500 mL (1000 mL/hr), then 100 mL/hr for X5 (NOW). Start 19:30 08/01/2016 Elaine Bella R.N., Stop 20:00 08/01/2016 Elaine Bella R.N. Medication Administered: CALCIUM GLUCONATE [IVPB], Dose: 1 gm IVPB over 30 minute(s), Rate: 200 mL/hr, Dispensed: 100 mL bag, Site: #2 right AC. Medication Ordered: Calcium Gluconate IV 1 gm/100mL (HIGH ALERT MEDICATION, NOW).
--- NOTE | 2016-08-04 09:06 | ED MAR SUMMARY ---
..... Medication Administration Record [facility] [address] [place] [address] Patient: OPAL LAI Visit ID: [id number] 86y, F Weight: 64.3 kg Height/Length: 64 in BMI: 24.4 ALLERGIES: No Known Drug Allergy Start 18:30 08/01/2016 Elaine Bella R.N., Continued Upon Disposition 21:35 08/01/2016 Elaine Bella R.N. Medication Administered: IV NS (SALINE), Dose: IV Fluids over 5 hour(s), Rate: 100 mL/hr, Bolus: 500 mL over 1 hour(s), Dispensed: 1000 mL bag, Site: #1 left AC. Medication Ordered: IV NS with Normal Saline 1 Liter: initial bolus 500 mL (1000 mL/hr), then 100 mL/hr for X5 (NOW). Start 19:30 08/01/2016 Elaine Bella R.N., Stop 20:00 08/01/2016 Elaine Bella R.N. Medication Administered: CALCIUM GLUCONATE [IVPB], Dose: 1 gm IVPB over 30 minute(s), Rate: 200 mL/hr, Dispensed: 100 mL bag, Site: #2 right AC. Medication Ordered: Calcium Gluconate IV 1 gm/100mL (HIGH ALERT MEDICATION, NOW).
--- NOTE | 2016-08-04 09:06 | ED MED RECONCILIATION SUMMARY ---
Patient: OPAL LAI Medication Reconciliation Report [facility] VisitID: [id number] [address] [place] [address] 86y, F Registration Date/Time: 08/01/2016 Weight: 64.3 kg Height/Length: 64 in. BMI: 24.4 ALLERGIES: No Known Drug Allergy The patient's Home Medications are listed below: THE FOLLOWING MEDICATIONS NEED TO BE RECONCILED: AmLODIPine Besylate Oral (5 mg) 1 tablet, daily Atorvastatin Calcium Oral (40 mg) 1 tablet, daily Levothyroxine Sodium Oral (75 mcg) 1 tablet, daily The source(s) of the original Home Medication information: patient's spouse The following Medications were given to the patient in the Emergency Department: IV NS IV Fluids bolus 500 mL over 1 hour(s), then 100 mL/hr, administered: 08/01/2016 6:30:00 PM Calcium Gluconate [IVPB] IVPB bolus 0, then 1 gm 200 mL/hr, administered: 08/01/2016 7:30:00 PM The following Medications were prescribed to the patient: None.
--- NOTE | 2016-08-04 09:06 | ED DISCHARGE INSTRUCTIONS ---
Patient: OPAL LAI General Instructions [facility] VisitID: [id number] [place] [address] 86y, F Registration Date/Time: 08/01/2016 GI bleed. Pancreatitis. Anemia. Leukocytosis. Anemia. Hyperkalemia. Hyponatremia. L 2 lytic lesion. (Electronically signed by Brock Gtz MD 08/04/2016 9:05)
--- NOTE | 2016-08-04 09:06 | ED DISCHARGE INSTRUCTIONS ---
Patient: OPAL LAI General Instructions [facility] VisitID: [id number] [address] [place] [address] 86y, F Registration Date/Time: 08/01/2016 GI bleed. Pancreatitis. Anemia. Leukocytosis. Anemia. Hyperkalemia. Hyponatremia. L 2 lytic lesion. (Electronically signed by Brock Gtz MD 08/04/2016 9:05)
--- NOTE | 2016-08-04 09:06 | ED MED RECONCILIATION SUMMARY ---
Patient: OPAL LAI Medication Reconciliation Report [facility] VisitID: [id number] [address] [place] [address] 86y, F Registration Date/Time: 08/01/2016 Weight: 64.3 kg Height/Length: 64 in. BMI: 24.4 ALLERGIES: No Known Drug Allergy The patient's Home Medications are listed below: THE FOLLOWING MEDICATIONS NEED TO BE RECONCILED: AmLODIPine Besylate Oral (5 mg) 1 tablet, daily Atorvastatin Calcium Oral (40 mg) 1 tablet, daily Levothyroxine Sodium Oral (75 mcg) 1 tablet, daily The source(s) of the original Home Medication information: patient's spouse The following Medications were given to the patient in the Emergency Department: IV NS IV Fluids bolus 500 mL over 1 hour(s), then 100 mL/hr, administered: 08/01/2016 6:30:00 PM Calcium Gluconate [IVPB] IVPB bolus 0, then 1 gm 200 mL/hr, administered: 08/01/2016 7:30:00 PM The following Medications were prescribed to the patient: None.
== END 2016-08-01 21:35 | disposition short-term general hospital (02) ==
LOC: ED SRH 17:26
DX: K92.2 Gastrointestinal hemorrhage, unspecified (principal); K85.90 Acute pancreatitis without necrosis or infection, unspecified; M48.8X6 Other specified spondylopathies, lumbar region; D64.9 Anemia, unspecified; E87.1 Hypo-osmolality and hyponatremia; D72.829 Elevated white blood cell count, unspecified; E87.5 Hyperkalemia; I10 Essential (primary) hypertension; Z79.899 Other long term (current) drug therapy
CPT/HCPCS: 90001; 90065; 90074; 90100; 90155; 91004; 91643; 92031; 92235; 92530; 94001; 94060; 95059